=== PATIENT | female | born 1975 | race African-American/Black ===

== ENCOUNTER 2017-08-18 06:25 | Emergency (ER) | payer SELFPAY ==
[2017-08-18 06:33] VITALS: BP 151/95; BMI 28.5
--- NOTE | 2017-08-18 06:58 | DR.GENAD ---
HPI - Complaint/Symptoms Chief Complaint Doctors Comments: Patient was at work today and had to leave due to vomiting. She denies fever but feels weak. There is no diarrhea or fever. Chief Complaint:: PT STATES THAT SHE HAS BEEN OUT OF WORK FOR A WHILE DUE TO SHINGLES AND TRIED TO RETURN TONIGHT AND HAS BEEN VOMITING AND VERY NAUSOUS FOR THE PAST SEVERAL HOURS. PT STATES THAT SHE IS FREEZING AND CANNOT STOP SHIVERING - Source History Provided: Patient - Mode of Arrival Mode of Arrival: Wheelchair - Timing Onset of Chief Complaint: 08/18/17 <AFIA WILKINSON - Last Filed: 08/18/17 07:33> PMH - PMH Past Medical History: Yes Past Medical History Comment: LUPUS Past Surgical History: Yes Surgical History: Cholecystectomy, [employer] Surgery, Ortho Surgery - Family History History of Family Medical Conditions: Yes Family Medical History: Diabetes Mellitus, Hypertension - infectious screening Have you traveled outside the country in the last 6 months?: No <AFIA WILKINSON - Last Filed: 08/18/17 07:33> ROS - Review of Systems Constitutional: negative: Diaphoresis Eyes: No Symptoms Reported ENTM: No Symptoms Reported Respiratoy: No Symptoms Reported Cardiovascular: No Symptoms Reported Gastrointestinal/Abdominal: No Symptoms Reported Genitourinary: No Symptoms Reported Neurological: No Symptoms Reported Musculoskeletal: No Symptoms Reported, See HPI Integumentary: No Symptoms Reported Hematologic/Lymphatic: No Symptoms Reported Endocrine: No Symptoms Reported Psychiatric: No Symptoms Reported All Other Systems: Reviewed and Negative <AFIA WILKINSON - Last Filed: 08/18/17 07:33> PE - General Limitations: No Limitations General Appearance: Alert - Head Head Exam: Normal Inspection, Atraumatic - Eyes Eye exam: Normal Appearance, PERRL, EOMI - ENT ENT Exam: Normal Exam, Normal Oropharynx External Ear Exam: Normal External Inspection TM/Canal Exam: Bilateral Normal Nose Exam: Normal Nose Exam Mouth Exam: Normal Inspection. negative: Drooling, Trismus Throat Exam: Normal Inspection - Neck Neck Exam: Normal Inspection, Full ROM - Chest Chest Inspection: Normal Inspection - Respiratory Respiratory Exam: Normal Lung Sounds Bilat Respiratory Exam: Bilateral Clear to Auscultation - Cardiovascular Cardiovascular Exam: Regular Rate, Normal Rhythm - Abdominal Exam Abdominal Exam: Normal Inspection, Soft Abdominal Tenderness: Suprapubic - Extremities Extremities Exam: Normal Inspection, Full ROM - Back Back Exam: Normal Inspection - Neurologic Neurological Exam: Alert, Oriented X3, CN II-XII Intact - Psychiatric Psychiatric Exam: Normal Affect, Normal Mood - Skin Skin Exam: Warm, Dry, Intact <AFIA WILKINSON - Last Filed: 08/18/17 07:33> - Vital Signs Vitals: Temperature 97.7 F Pulse Rate 86 Respiratory Rate 18 Blood Pressure 151/95 O2 Sat by Pulse Oximetry 100 MDM - Differential Diagnosis Differential Diagnosis: ABDOMINAL PAIN, VOMITING, GASTROENTERITIS. <GINA GALVEZ - Last Filed: 08/18/17 14:52> Course - Treatment Treatment: SEE ORDERS. - Education/Counseling Education/Counseling: Patient, Education Educated On: Treatment, Diagnosis, Needs for Follow Up <GINA GALVEZ - Last Filed: 08/18/17 14:52> ROR - Labs Reviewed Result Diagrams: 08/18/17 07:15 08/18/17 07:15 <AFIA WILKINSON - Last Filed: 08/18/17 07:33> - Labs Reviewed Laboratory Results Reviewed?: Yes Result Diagrams: 08/18/17 07:15 08/18/17 07:15 - XRAY XRAY Interpreted by: Radiologist XRAY Findings: REPORT DISCUSS WITH PATIENT. <GINA GALVEZ - Last Filed: 08/18/17 14:52> - Labs Reviewed Laboratory: WBC 13.7 X10^3/uL (3.6-10.0) H 08/18/17 07:15 RBC 5.16 X10^6/uL (3.5-5.4) 08/18/17 07:15 Hgb 15.2 g/dL (12.0-16.0) 08/18/17 07:15 Hct 45.1 % (36.0-47.0) 08/18/17 07:15 MCV 87.5 fL (80.0-100.0) 08/18/17 07:15 MCH 29.5 pg (27.0-34.0) 08/18/17 07:15 MCHC 33.7 g/dL (33.0-35.0) 08/18/17 07:15 RDW 15.3 % (11.6-16.5) 08/18/17 07:15 Plt Count 169 X10^3/uL (150.0-450.0) 08/18/17 07:15 MPV 9.5 fL (7.4-11.0) 08/18/17 07:15 Neut % 70.3 % (42.0-75.0) 08/18/17 07:15 Lymph % 21.9 % (21.0-51.0) 08/18/17 07:15 Runnels % 6.2 % (0.0-13.0) 08/18/17 07:15 Eos % 0.8 % (0.9-2.9) L 08/18/17 07:15 Baso % 0.8 % (0.2-1.0) 08/18/17 07:15 Neut # 9.7 x10^3/uL (2.2-4.8) H 08/18/17 07:15 Lymph # 3.0 X10^3/uL (1.3-2.9) H 08/18/17 07:15 Runnels # 0.9 x10^3/uL (0.3-0.8) H 08/18/17 07:15 Eos # 0.1 x10^3/uL (0.0-0.2) 08/18/17 07:15 Baso # 0.1 X10^3/uL (0.0-0.1) 08/18/17 07:15 Absolute Nucleated RBC 0.0 /100WBC 08/18/17 07:15 Sodium 141 mmol/L (136-145) 08/18/17 07:15 Corrected Sodium 142 mmol/L (136-145) 08/18/17 07:15 Potassium 3.6 mmol/L (3.5-5.1) 08/18/17 07:15 Chloride 105 mmol/L (98-107) 08/18/17 07:15 Carbon Dioxide 25.8 mmol/L (21-32) 08/18/17 07:15 BUN 14 mg/dL (7-18) 08/18/17 07:15 Creatinine 0.91 mg/dL (0.55-1.02) 08/18/17 07:15 Est GFR (MDRD) Af Amer > 60 (>60) 08/18/17 07:15 Est GFR (MDRD) Non-Af > 60 (>60) 08/18/17 07:15 Glucose 142 mg/dL (65-99) H 08/18/17 07:15 Calcium 9.9 mg/dL (8.5-10.1) 08/18/17 07:15 C-Reactive Protein 1.90 mg/L (0-3.0) 08/18/17 07:15 HCG, Qual Negative <10 mIU/mL 08/18/17 10:40 Specimen Type Clean catch urine 08/18/17 11:09 Urine Color Yellow (YELLOW) 08/18/17 11:09 Urine Appearance Hazy (CLEAR) 08/18/17 11:09 Urine pH 5.0 (5.0 - 8.0) 08/18/17 11:09 Ur Specific [place] 1.025 (1.000-1.030) 08/18/17 11:09 Urine Protein 2+ (NEGATIVE) 08/18/17 11:09 Urine Glucose (UA) Negative (NEGATIVE) 08/18/17 11:09 Urine Ketones 2+ (NEGATIVE) 08/18/17 11:09 Urine Occult Blood 2+ (NEGATIVE) 08/18/17 11:09 Urine Nitrite Negative (NEGATIVE) 08/18/17 11:09 Urine Bilirubin Negative (NEGATIVE) 08/18/17 11:09 Urine Urobilinogen 1+ (NORMAL) 08/18/17 11:09 Ur Leukocyte Esterase 1+ (NEGATIVE) 08/18/17 11:09 Urine RBC 5-10 /HPF (NEGATIVE) 08/18/17 11:09 Urine WBC 0-3 /HPF (NEGATIVE) 08/18/17 11:09 Ur Squamous Epith Cells Moderate /HPF (NEGATIVE) 08/18/17 11:09 Amorphous Sediment 1+ /HPF (NEGATIVE) 08/18/17 11:09 Urine Bacteria Trace /HPF (NEGATIVE) 08/18/17 11:09 Urine Mucus Many /HPF (NEGATIVE) 08/18/17 11:09 Ur Culture Indicated? No/not indicated 08/18/17 11:09 Streptococcus Screen Negative (NEGATIVE) 08/18/17 07:10 <AFIA WILKINSON - Last Filed: 08/18/17 07:33> <GINA GALVEZ - Last Filed: 08/18/17 14:52> - Diagnosis Discharge Problem: Gastroenteritis Abdominal pain Qualifiers: Abdominal location: epigastric Qualified Code(s): R10.13 - Epigastric pain Vomiting Qualifiers: Vomiting type: bilious vomiting Nausea presence: unspecified Qualified Code(s) : R11.14 - Bilious vomiting - Discharge Plan Disposition: 01 HOME, SELF-CARE Condition: Stable Prescriptions: Ketorolac Tromethamine [Toradol Tab] 10 mg PO Q8H PRN #15 tab PRN Reason: Pain Ondansetron HCl [Zofran Tab 4 mg] 4 mg PO Q8H PRN 12 Days #12 tab PRN Reason: Nausea/Vomiting Ranitidine HCl [ZANTAC TAB 150 MG *] 150 mg PO BID #20 tab - Follow ups/Referrals Follow ups/Referrals: [facility],None [Primary Care Provider] - 1 day - Instructions Instructions: Viral Gastroenteritis, Adult, [id number], Abdominal Pain, Adult , [id number] Additional Instructions: RETURN TO ED IF WORSE.
[2017-08-18] MEDS ORDERED: NS 1000 ML 1,000 ML IV ONE (06:59)
[2017-08-18] MEDS ORDERED: NS 1000 ML 1,000 ML ONE (07:01)
[2017-08-18] MEDS ORDERED: ZOFRAN INJ 4 MG VIAL ONE (07:07)
[2017-08-18] MEDS ORDERED: ZOFRAN INJ 4 MG VIAL IVP ONE (07:08)
[2017-08-18] MEDS ORDERED: TORADOL 30 MG VIAL ONE (07:29)
[2017-08-18] MEDS ORDERED: TORADOL 30 MG VIAL IVP ONE (07:29)
[2017-08-18 07:35] LABS: BASOPHILS # (AUTO) 0.1 X10^3/uL (0.0-0.1); BASOPHILS % (AUTO) 0.8 % (0.2-1.0); EOSINOPHILS # (AUTO) 0.1 x10^3/uL (0.0-0.2); EOSINOPHILS % (AUTO) 0.8 % (0.9-2.9); HEMATOCRIT 45.1 % (36.0-47.0); HEMOGLOBIN 15.2 g/dL (12.0-16.0); LYMPHOCYTES % (AUTO) 21.9 % (21.0-51.0); MEAN CORPUSCULAR HEMOGLOBIN 29.5 pg (27.0-34.0); MEAN CORPUSCULAR HGB CONC 33.7 g/dL (33.0-35.0); MEAN CORPUSCULAR VOLUME 87.5 fL (80.0-100.0); MEAN PLATELET VOLUME 9.5 fL (7.4-11.0); MONOCYTES # (AUTO) 0.9 x10^3/uL (0.3-0.8); MONOCYTES % (AUTO) 6.2 % (0.0-13.0); NEUTROPHILS # (AUTO) 9.7 x10^3/uL (2.2-4.8); NEUTROPHILS % (AUTO) 70.3 % (42.0-75.0); PLATELET COUNT 169 X10^3/uL (150.0-450.0); RED BLOOD COUNT 5.16 X10^6/uL (3.5-5.4); RED CELL DISTRIBUTION WIDTH 15.3 % (11.6-16.5); WHITE BLOOD COUNT 13.7 X10^3/uL (3.6-10.0)
[2017-08-18 07:39] LABS: BLOOD UREA NITROGEN 14 mg/dL (7-18); CALCIUM 9.9 mg/dL (8.5-10.1); CARBON DIOXIDE 25.8 mmol/L (21-32); CHLORIDE 105 mmol/L (98-107); COR NA(FOR HYPERGLY) 142 mmol/L (136-145); CREATININE 0.91 mg/dL (0.55-1.02); SODIUM 141 mmol/L (136-145); eGFR BLACK RACES > 60 (>60); eGFR NON BLACK RACES > 60 (>60)
[2017-08-18] MEDS ORDERED: DEMEROL INJ IVP ONE (08:40)
[2017-08-18] MEDS ORDERED: PEPCID 20 MG IV PREMIX* 20 MG/50 ML BAG IV ONE ×2 (08:40→08:41)
[2017-08-18] MEDS ORDERED: DEMEROL INJ ONE (08:42)
--- NOTE | 2017-08-18 11:03 | RAD ---
HISTORY: Abdominal pain. Prior history of cholecystectomy and hysterectomy Study: Acute abdominal series Comparison: No priors Findings: The trachea is midline. The cardiac silhouette is unremarkable. Lungs displayed diffuse increase in terstitial markings which may be on the basis of bronchitis or interstitial lung disease. No consolid ation, CHF, pleural fluid or pneumothorax is seen. The bony thorax is unremarkable. Flat plate and upright evaluation of the abdomen demonstrates a normal bowel gas pattern. There are s urgical clips from cholecystectomy. No evidence of free intraperitoneal air or fluid is seen. No path ological soft tissue mass or calcification can be observed. The bony structures are grossly intact. IMPRESSION: 1. Increased interstitial markings present involving both lungs which may be on the basis of bronchi tis or interstitial lung disease. 2. No evidence for acute abdominal pathology identified. Reported By:
[2017-08-18 11:04] LABS: SERUM PREGNANCY TEST, QUAL NEGATIVE <10 mIU/mL
[2017-08-18 11:16] LABS: BILIRUBIN,URINE NEGATIVE (NEGATIVE); BLOOD/HEMOGLOBIN,URINE 2+ (NEGATIVE); GLUCOSE, URINE NEGATIVE (NEGATIVE); KETONES,URINE 2+ (NEGATIVE); LEUKOCYTE ESTERASE ,URINE 1+ (NEGATIVE); NITRITES,URINE NEGATIVE (NEGATIVE); PROTEIN,URINE 2+ (NEGATIVE); UROBILINOGEN,URINE 1+ (NORMAL)
[2017-08-18 11:27] LABS: APPEARANCE,URINE HAZY (CLEAR); COLOR,URINE YELLOW (YELLOW)
[2017-08-18 11:28] LABS: AMORPHOUS SEDIMENT,UR 1+ /HPF (NEGATIVE); BACTERIA,URINE TRACE /HPF (NEGATIVE); MUCUS,URINE MANY /HPF (NEGATIVE); SQUAMOUS EPITHELIAL CELL,UR MODERATE /HPF (NEGATIVE)
== END 2017-08-18 11:40 | disposition home or self-care (01) ==
LOC: ER 06:25
DX: K52.89 Other specified noninfective gastroenteritis and colitis (principal); R10.13 Epigastric pain; R11.14 Bilious vomiting
CPT/HCPCS: 36415; 74022; 80048; 81001; 84703; 85025; 86140; 87070; 87880; 96365; 96374; 96375; 99283; A4222; S0028; J1885; J2175; J2405